=== PATIENT | male | born 1950 | race Caucasian/White ===

== ENCOUNTER 2017-11-26 22:46 | Emergency (ER) | payer OTHER, MEDICARE ==
[~2017-11-26] VITALS: Ht 172.7 cm; Wt 79.4 kg
[2017-11-26] MEDS ORDERED: COUMADIN 1MG TAB1 M1 (22:52)
[2017-11-26] MEDS ORDERED: HYZAAR 100-12.1 EACH PO (23:31)
[2017-11-26] MEDS ORDERED: COREG25 MG PO (23:31)
[2017-11-26] MEDS ORDERED: TERAZOSIN HCL5 MG PO (23:31)
[2017-11-26] MEDS ORDERED: LASIX 20 MG TAB20 MG PO (23:32)
[2017-11-26] MEDS ORDERED: KLOR-CON 1010 MEQ PO (23:32)
[2017-11-26] MEDS ORDERED: DIGOXIN250 MCG PO (23:32)
[2017-11-26] MEDS ORDERED: ADVAIR HFA 230M12 GM INH (23:33)
[2017-11-26] MEDS ORDERED: ZYRTEC10 M5 PO (23:33)
[2017-11-26] MEDS ORDERED: NORVASC5 MG PO (23:35)
[2017-11-26 23:39] LABS: ABSOLUTE NEUTROPHILS 11.6 thou/uL (1.4-8.2); BASOPHILS 0.4 % (0.0-2.0); EOSINOPHILS 0.2 % (0.0-3.0); HEMATOCRIT 34.7 % (42.0-52.0); HEMOGLOBIN 11.7 gm/dL (14.0-18.0); LYMPHOCYTES 5.5 % (24.0-44.0); MCH 29.8 pg (26.0-34.0); MCHC 33.6 g/dL (28.0-37.0); MCV 88.8 fL (80.0-100.0); MONOCYTES 8.6 % (1.0-8.0); PLATELET COUNT 162 thou/uL (150-400); POLYS 85.3 % (36.0-66.0); RBC 3.91 mil/uL (4.50-6.00); RDW 13.6 % (10.5-14.5); WBC 13.5 thou/uL (4.0-11.0)
[2017-11-26 23:47] LABS: CALCIUM 8.5 mg/dL (8.5-10.1); POTASSIUM 4.3 mmol/L (3.5-5.1)
[2017-11-26 23:53] LABS: APTT 33.9 Seconds (24.5-32.8); INR 1.8
[2017-11-27] MEDS ORDERED: BACTRIM DS TAB1 EACH PO (00:10)
[2017-11-27] MEDS ORDERED: NORCO 5-325 TA1 EACH PO (00:20)
== END 2017-11-27 00:32 | disposition home or self-care (01) ==
LOC: ER 22:46
PROVIDERS: Emergency Medicine
DX: L03.116 Cellulitis of left lower limb (principal); I10 Essential (primary) hypertension